=== PATIENT | male | born 1970 | race African-American/Black ===

== ENCOUNTER 2020-01-13 22:14 | Observation (INO) ==
[2020-01-13] MEDS ORDERED: IOPAMIDOL 100 ML BOTTLE IV ONE (22:15)
[2020-01-13 22:42] LABS: POC INR 1.1 (0.9-1.2); POC Pro Time 13.5 sec (11.9-14.5)
[2020-01-13 22:43] LABS: POC Blood Urea Nitrogen 16 mg/dl (6-20); POC CO2 25 mmol/L (22-30); POC Calcium, Ionized 1.23 mmol/L (1.16-1.32); POC Chloride 100 mmol/L (96-108); POC Creatinine 0.9 mg/dl (0.7-1.2); POC Glucose, Random 156 mg/dL (70-105); POC Potassium 3.9 mmol/L (3.3-5.1); POC Sodium 139 mmol/L (133-145)
--- NOTE | 2020-01-13 23:08 | Emergency Department Note ---
Neuro HPI General Chief Complaint: Stroke Symptoms Stated Complaint: speech difficulty Time Seen by Provider: 01/13/20 23:02 Source: patient and family Mode of arrival: wheelchair Limitations: physical limitation (Somewhat limited due to morbid obesity primarily abdominally. This is some decrease in mobility and agility getting, etc.) History of Present Illness HPI Narrative: Narrative: This 49-year-old male comes accompanied by his walking into the emergency room stating that his blood pressure is been quite high at 210/170 and that he cannot elucidate or articulate words. He means that he cannot seem to find words. He indicates the onset of the symptoms were this evening. She remembers having normal conversation at 6:30 PM but 6:40 he was having troubles forming and finding words or figuring out what to say. He apparently had similar episode in 2013 approximately 6 years ago and was labeled as a TIA with difficulties with speech then. He currently denies any paresthesias or weakn ess. There is been a little bit of dizziness. reports that he did sleep this morning even close till noon and this is unusual for him. He commonly is drowsy or groggy but he does not usually sleep this much. Patient reports he has had an increase in swelling the past 3 weeks and has been very gradual. He is on medications for blood pressure and for congestive heart failure. Lisinopril 20 mg twice a day and furosemide 40 mg once daily with these doses having been increased recently at least the water pill. On Anticoagulants: No Related Data Home Medications Medication Instructions Recorded Confirmed furosemide [Lasix] 40 mg PO DAILY 01/14/20 01/14/20 lisinopril 20 mg PO DAILY 01/14/20 01/14/20 Allergies Allergy/AdvReac Type Severity Reaction Status Date / Time No Known Drug Allergies Allergy Verified 11/11/19 09:14 Review of Systems ROS ROS Narrative: Narrative: Denies fevers, chills, sweats Denies blurry vision or double vision Denies chest pain Short of breath chronically but has been a little worse today since she got home from work at 3 PM. Denies any nausea or vomiting or abdominal vision or hematochezia. Some lightheaded dizziness. Some prediabetes in the past. Has had mild anemia at a previous visit to this emergency room or other. [facility] Narrative Patient History Narrative: Narrative: Medical/Surgical/Family History All Active Problems (Updated 01/14/20 @ 03:00 by Booker Perez DO) TIA (transient ischemic attack) (Acute) Hypertension, essential (Chronic) JOANNE (obstructive sleep apnea) (Chronic) Morbid obesity (Chronic) Congestive heart failure (Acute) Medical History (Updated 01/14/20 @ 03:00 by Booker Perez DO) Chest pain (Inactive) Community acquired pneumonia (Inactive) Gout attack (Inactive) History of TIA (transient ischemic attack) (Resolved) 2013 per pt and Hypertension, essential (Chronic) Morbid obesity (Chronic) JOANNE (obstructive sleep apnea) (Chronic) Family History (Updated 01/13/20 @ 23:16 by Booker Perez DO) DVT (deep venous thrombosis) Father CVA (cerebral vascular accident) Father Social History Smoking Status: Never smoker Exam Narrative Narrative: Narrative: General Limitations: physical limitation (Somewhat limited due to morbid obesity primarily abdominally. This is some decrease in mobility and agility getting, etc.) General appearance: alert, in no apparent distress and nontoxic Head Head: atraumatic and normocephalic Eye Eye: Present normal appearance, PERRL and EOMI ENT ENT: Present normal oropharynx and mucous membranes moist Neck Neck: Present trachea midline; Absent lymphadenopathy and thyromegaly Chest Chest: Present symmetric chest wall rise Respiratory Respiratory: Present normal lung sounds bilaterally; Absent respiratory distress, rales/crackles, wheezes, stridor, accessory muscle use and prolonged expiratory phase Cardiovascular Cardiovascular: Present regular rate and normal rhythm; Absent systolic murmur and diastolic murmur Adbominal Abdominal: Present soft and other (Thickening and "orange peel" type of changes in the lower one third of the abdominal wall. There is trace pinkness to this area as well.); Absent distention, tenderness, guarding, rebound, rigidity, organomegaly and mass Extremities Extremities: Present normal capillary refill, pedal edema (2/4 bilateral) and pretibial edema (1-2/4 bilateral); Absent calf tenderness and cyanosis Back Back: Neurological Neurological: Present alert and oriented X3 Expanded Neurological Patient oriented to: Present person, place and time Speech: Present expressive aphasia (Occasionally has troubles finding words and/or expressing himself answering correctly. Articulation overall is correct and good.) CRANIAL NERVES: EOM function (II, III, IV, ): Normal Psychiatric Psychiatric: Present normal affect and pleasant; Absent depressed, agitated, anxious and poor eye contact Skin Skin: Present warm and dry; Absent cyanosis and pallor Course Vital Signs Vital signs: Vital Signs Temperature 97.5 F 01/13/20 22:14 Pulse Rate 114 H 01/13/20 22:14 Respiratory Rate 12 01/13/20 22:14 Blood Pressure 192/131 01/13/20 22:14 Pulse Oximetry (%) 95 01/13/20 22:14 Temperature 97.5 F 01/13/20 22:14 Pulse Rate 91 H 01/14/20 02:41 Respiratory Rate 29 H 01/14/20 02:41 Blood Pressure 178/106 01/14/20 02:32 Pulse Oximetry (%) 96 01/14/20 02:41 MDM MDM Narrative Medical decision making narrative: Narrative: 10:13 PM - interviewed and examined. Word finding/expression difficulties with a history of speech type deficit TIA 6 years ago. Risk factors include male, 49-year-old, history of CHF, morbid obesity, prediabetes, sleep apnea etc. We will do multiple labs and imaging. This will include a code stroke. 10:26 PM - ECG demonstrated sinus tachycardia with late transition. 10:49 PM INR is 1.1; CT scan report officially negative. Blood pressures have now come down to 170/110. He still has some difficulties finding some words per nursing staff. NIH scale of 1 for the speech only. 10:50 AM - blood sugar reported to me as 210. 2:09 AM - I spoke with Dr. Auguste, stroke neurologist, who agrees with work-up and admission with the ABCD 2 score of 5 and his risk factors to finish the stroke work-up with MRI, telemetry, echo. Call out to hospitalist. 2:30 AM - I spoke with Dr. Wall, hospitalist who is willing to accept this patient. Patient may not be able to get MRI done here due to his morbid obesity. Monitoring, echocardiogram, and therapy with aspirin (ordered) can be done and transition orders placed. Patient is also a new diabetic. Lab Data Result diagrams: 01/13/20 22:40 01/13/20 22:40 Labs: Lab Results 01/13/20 01/13/20 01/13/20 Range/Units 22:40 22:40 22:40 WBC 9.3 (4.50-11.00) K/mcL RBC 4.90 (4.63-6.08) M/mcL Hgb 12.9 L (13.7-17.5) g/dL Hct 40.3 (40.1-51.0) % POC Hct 42.0 (41.0-55.0) % MCV 82.2 (80.0-100.0) fL MCH 26.3 (26.0-34.0) pg MCHC 32.0 (31.0-36.0) g/dL RDW 15.9 H (11.5-14.5) % Plt Count 290 (140-440) K/mcL MPV 10.7 H (7.4-10.4) fL Gran % 69.1 (38.0-78.0) % Lymph % (Auto) 18.0 (15.5-49.0) % [place] % (Auto) 8.0 (1.0-12.0) % Eos % (Auto) 3.9 (0.0-7.0) % Baso % (Auto) 1.0 (0.0-2.0) % Gran # 6.45 (1.80-8.00) K/mcL Lymph # (Auto) 1.68 (1.50-4.80) K/mcL [place] # (Auto) 0.75 (0.10-0.90) K/mcL Eos # (Auto) 0.36 (0.00-0.70) K/mcL Baso # (Auto) 0.09 (0.00-0.30) K/mcL POC PT 13.5 (11.9-14.5) sec POC INR 1.1 (0.9-1.2) APTT 32 (20-37) sec POC Sodium 139 (133-145) mmol/L Sodium 136 (133-145) mmol/L POC Potassium 3.9 (3.3-5.1) mmol/L Potassium 3.9 (3.3-5.1) mmol/L POC Chloride 100 (96-108) mmol/L Chloride 97 (96-108) mmol/L Carbon Dioxide 23 (22-30) mmol/L POC Total CO2 25 (22-30) mmol/L Anion Gap 16.0 (8-16) POC BUN 16 (6-20) mg/dl BUN 16 (6-20) mg/dl Creatinine 1.0 (0.7-1.2) mg/dl POC Creatinine 0.9 (0.7-1.2) mg/dl GFR Calculation 87 Glucose 156 H (70-105) mg/dL POC Glucose 156 H (70-105) mg/dL Calcium 9.7 (8.6-10.4) mg/dl POC WB Ioniz Calcium 1.23 (1.16-1.32) mmol/L Total Bilirubin 0.4 (0.0-1.0) mg/dL AST 17 (0-37) U/l ALT 21 (0-40) U/l Alkaline Phosphatase 85 (39-117) U/L Troponin T (0-0.03) ng/ml Total Protein 7.7 (5.9-8.4) gm/dL Albumin 4.0 (3.2-5.2) gm/dL Globulin 3.7 (2.2-3.7) gm/dL Albumin/Globulin Ratio 1.1 (1.0-2.3) Urine Color Urine Appearance Urine pH (5.0-9.0) Ur Specific [place] (1.000-1.035) Urine Protein (NEG) mg/dL Urine Glucose (UA) (NEG) mg/dL Urine Ketones (NEG) mg/dL Urine Occult Blood (<0.03) mg/dL Urine Nitrate (NEG) Urine Bilirubin (NEG) mg/dL Urine Urobilinogen (NEG) mg/dL Ur Leukocyte Esterase (NEG) /uL Urine RBC (0-1) /hpf Urine WBC (0-4) /hpf Ur Squamous Epith Cells (0-4) /hpf Urine Bacteria (0) /hpf Urine Mucus (0) /hpf Ur Culture Indicated? 01/13/20 01/13/20 Range/Units 22:40 23:20 WBC (4.50-11.00) K/mcL RBC (4.63-6.08) M/mcL Hgb (13.7-17.5) g/dL Hct (40.1-51.0) % POC Hct (41.0-55.0) % MCV (80.0-100.0) fL MCH (26.0-34.0) pg MCHC (31.0-36.0) g/dL RDW (11.5-14.5) % Plt Count (140-440) K/mcL MPV (7.4-10.4) fL Gran % (38.0-78.0) % Lymph % (Auto) (15.5-49.0) % [place] % (Auto) (1.0-12.0) % Eos % (Auto) (0.0-7.0) % Baso % (Auto) (0.0-2.0) % Gran # (1.80-8.00) K/mcL Lymph # (Auto) (1.50-4.80) K/mcL [place] # (Auto) (0.10-0.90) K/mcL Eos # (Auto) (0.00-0.70) K/mcL Baso # (Auto) (0.00-0.30) K/mcL POC PT (11.9-14.5) sec POC INR (0.9-1.2) APTT (20-37) sec POC Sodium (133-145) mmol/L Sodium (133-145) mmol/L POC Potassium (3.3-5.1) mmol/L Potassium (3.3-5.1) mmol/L POC Chloride (96-108) mmol/L Chloride (96-108) mmol/L Carbon Dioxide (22-30) mmol/L POC Total CO2 (22-30) mmol/L Anion Gap (8-16) POC BUN (6-20) mg/dl BUN (6-20) mg/dl Creatinine (0.7-1.2) mg/dl POC Creatinine (0.7-1.2) mg/dl GFR Calculation Glucose (70-105) mg/dL POC Glucose (70-105) mg/dL Calcium (8.6-10.4) mg/dl POC WB Ioniz Calcium (1.16-1.32) mmol/L Total Bilirubin (0.0-1.0) mg/dL AST (0-37) U/l ALT (0-40) U/l Alkaline Phosphatase (39-117) U/L Troponin T < 0.01 (0-0.03) ng/ml Total Protein (5.9-8.4) gm/dL Albumin (3.2-5.2) gm/dL Globulin (2.2-3.7) gm/dL Albumin/Globulin Ratio (1.0-2.3) Urine Color Straw Urine Appearance Clear Urine pH 7.0 (5.0-9.0) Ur Specific [place] 1.009 (1.000-1.035) Urine Protein 30 A (NEG) mg/dL Urine Glucose (UA) Negative (NEG) mg/dL Urine Ketones Neg (NEG) mg/dL Urine Occult Blood Neg (<0.03) mg/dL Urine Nitrate Neg (NEG) Urine Bilirubin Neg (NEG) mg/dL Urine Urobilinogen Neg (NEG) mg/dL Ur Leukocyte Esterase Neg (NEG) /uL Urine RBC 0 (0-1) /hpf Urine WBC 1 (0-4) /hpf Ur Squamous Epith Cells 0 (0-4) /hpf Urine Bacteria 0 (0) /hpf Urine Mucus Few (0) /hpf Ur Culture Indicated? No Discharge Plan Patient/Caregiver Discharge Instructions Pt seen by [facility]/PA only: No Clinical Impression: TIA (transient ischemic attack) Patient Disposition: Xfer As Outpt/Obs ([facility]) Follow up with: No,PCP [Primary Care Provider] - Prescriptions: No Action furosemide [Lasix] 40 mg tablet 40 mg PO DAILY RF: 0 lisinopril 20 mg tablet 20 mg PO DAILY RF: 0
[2020-01-13 23:47] LABS: Basophils # (Auto) 0.09 K/mcL (0.00-0.30); Eosinophils # (Auto) 0.36 K/mcL (0.00-0.70); Eosinophils % (Auto) 3.9 % (0.0-7.0); Granulocytes % (Auto) 69.1 % (38.0-78.0); Hematocrit 40.3 % (40.1-51.0); Hemoglobin 12.9 g/dL (13.7-17.5); Lymphocytes # (Auto) 1.68 K/mcL (1.50-4.80); Mean Cell Volume 82.2 fL (80.0-100.0); Mean Platelet Volume 10.7 fL (7.4-10.4); Monocytes # (Auto) 0.75 K/mcL (0.10-0.90); Platelet Count 290 K/mcL (140-440); Red Cell Distribution Width 15.9 % (11.5-14.5); WBC 9.3 K/mcL (4.50-11.00)
[2020-01-14] MEDS ORDERED: FUROSEMIDE 40 MG/4 ML VIAL IV ONE (00:03)
[2020-01-14 00:07] LABS: ALT/SGPT 21 U/l (0-40); AST/SGOT 17 U/l (0-37); Albumin/Globulin Ratio 1.1 (1.0-2.3); Alkaline Phosphatase 85 U/L (39-117); Bilirubin,Total 0.4 mg/dL (0.0-1.0); Blood Urea Nitrogen 16 mg/dl (6-20); Calcium 9.7 mg/dl (8.6-10.4); Carbon Dioxide 23 mmol/L (22-30); Chloride 97 mmol/L (96-108); Globulin 3.7 gm/dL (2.2-3.7); Glomerular Filtration Rate 87; Glucose 156 mg/dL (70-105)
[2020-01-14 00:21] LABS: Appearance,Urine CLEAR; Bacteria,Urine 0 /hpf (0); Bilirubin,Urine NEG (NEG); Color,Urine STRAW; Culture Indicated,Urine NO; Glucose,Urine (UA) NEGATIVE (NEG); Ketones,Urine NEG (NEG); Leukocyte Esterase,Urine NEG /uL (NEG); Mucus,Urine FEW /hpf (0); Nitrate,Urine NEG (NEG); Protein,Urine 30 mg/dL (NEG); Specific Gravity,Urine 1.009 (1.000-1.035); Urine Blood NEG mg/dL (<0.03); Urine RBC 0 /hpf (0-1); Urine Squamous Epithelial Cell 0 /hpf (0-4); Urine WBC 1 /hpf (0-4); Urobilinogen,Urine NEG (NEG)
--- NOTE | 2020-01-14 06:05 | Cat Scan Report ---
INDICATION: Neuro Deficit/acute stroke COMPARISON: Previous examination dated 10/20/2019 TECHNIQUE: Axial noncontrast-enhanced images through the brain. Sagittally and coronally reformatted images. FINDINGS: The examination was initially interpreted by [facility] Cerebral hemispheres:No acute intra-axial hemorrhage. No focal intra-axial attenuation abnormality or localized mass effect. No midline shift. Lateral and third ventricles are enlarged. This is unchanged since 10/20/2019. Normal pressure hydrocephalus is not excluded in the appropriate clinical circumstances. Deep substance loss is possible. Brainstem and cerebellum:No intra-axial abnormality Extra-axial:No acute hemorrhage. No subdural or epidural hematoma. No subarachnoid hemorrhage. Basilar cisterns are normal Calvarial:No calvarial fracture. No lytic lesion Temporal bones are negative. No destructive lesions Soft tissue, orbits, sinuses:Orbits and visualized facial soft tissues are grossly normal. IMPRESSION: 1. Prominent lateral and third ventricles. Atrophy or normal pressure hydrocephalus or possible 2. No acute abnormality. No interval change since 10/22/2019 The exam was performed using radiation dose optimization techniques including, but not limited to, automated exposure control, adjustment of the mA and/or kV according to patient size and use of iterative reconstruction technique. Interpreted and Authenticated by: Hector Thakkar 01/14/20
--- NOTE | 2020-01-14 06:38 | Cat Scan Report ---
INDICATION: aphasia COMPARISON: Noncontrast enhanced brain CT scan dated 01/13/2020 TECHNIQUE: Axial images were obtained through the upper chest, neck, and head during arterial phase. MIP and CPR reformatted images. 140 ml Isovue 370 injected intravenously. FINDINGS: Examination was initially interpreted by [facility] Markedly suboptimal evaluation due to significant obesity. AORTIC ARCH: Aortic arch is negative. Origins of the left subclavian artery, left vertebral artery, left common carotid artery, innominate artery, right common carotid artery, right subclavian artery, right vertebral artery are negative. No origin stenosis. CAROTID ARTERIES:Right: Right common carotid artery is negative. No stenosis or occlusion. No significant calcified or noncalcified plaque at the origin of the right internal carotid artery. No significant stenosis or evidence for ulceration. Right internal carotid artery is otherwise negative. No stenosis or occlusion. No fibromuscular dysplasia or dissection. Left: Left common carotid artery is negative. No stenosis or occlusion No significant calcified or noncalcified plaque at the origin of left internal carotid artery. No significant stenosis. No evidence for ulceration. Left internal carotid artery is otherwise negative. There is no stenosis or occlusion. No dissection or evidence for fibromuscular dysplasia VERTEBRAL ARTERIES:Vertebral arteries are patent without stenosis or occlusion [place]:[Calcified plaque in the cavernous segments of both internal carotid arteries and supraclinoid segment of the left internal carotid artery. No significant stenosis or occlusion. M1 segments of the middle cerebral arteries and A1 segments of the anterior cerebral arteries are negative. Intracranial vertebral arteries and basilar artery are negative. Posterior cerebral arteries and superior cerebellar arteries are negative]. There is a surgical origin of the right posterior cerebral artery. INTRACRANIAL CIRCULATION:No intracranial branch occlusion. No arteriovenous malformation or aneurysm No dural sinus occlusion UPPER CHEST:Lungs are poorly visualized due to patient motion and severe obesity NECK:No solid or cystic soft tissue mass. No pathologic lymphadenopathy. BRAIN:No acute intracranial hemorrhage. No focal attenuation abnormalities or pathologic contrast enhancement. IMPRESSION: 1. Calcified plaque in the cavernous segments of the internal carotid arteries and supraclinoid segment of the left internal carotid artery 2. No significant plaque in the proximal internal carotid arteries 3. No intracranial branch occlusion or detectable stenosis The exam was performed using radiation dose optimization techniques including, but not limited to, automated exposure control, adjustment of the mA and/or kV according to patient size and use of iterative reconstruction technique. Interpreted and Authenticated by: Hector Thakkar 01/14/20
[2020-01-14] MEDS: ASPIRIN 325 MG ENTERIC COATED TABLET PO SCH (08:40)
--- NOTE | 2020-01-14 14:21 | Internal Med History&Physical ---
HPI History of Present Illness Patient information: Note initiated : 01/14/20 at 2:09 pm Service Date, if different from initiated Date: [] Patient: Magan Gayle a 49 y/o M admitted on 01/14/20 for speech difficulty. Chief Complaint: [difficulty articulating words] History of present illness: Mr. Gayle is a 49 year old M with morbid obesity, poorly controlled hypertension states he usually takes an asa 81mg daily but missed 3 days. Found that he could think of words but couldnt voice then. including meds and history. also noticed. He was seen in EMD and CTA head negative for stroke or occlusion. He does not fit in MRI machine here. Pt admits BP has been a problem and poorly controlled. Pt states he is a vegetarian but admits to eating lots of grains and starches carbohydrates but not sugar. has not lost much weight. 375 with diuresis 412 with fluid overload per his recollection. states his father of obesity and stroke age 50. Constitutional Constitutional: Present as per HPI and increased appetite; Absent weight gain and weight loss Cardiovascular Cardiovascular: Present leg edema; Absent chest pain at rest and chest pain with activity Respiratory Respiratory: Present dyspnea on exertion; Absent cough and chest congestion Musculoskeletal Musculoskeletal: Absent muscle weakness and myalgias Neurological Neurological: Present abnormal speech; Absent confusion, headache(s) and memory loss Psychiatric Psychiatric: Absent hopelessness Hematologic/Lymphatic Hematologic/Lymphatic: Absent easy bleeding and easy bruising PFSH PFSH All Active Problems (Updated 01/14/20 @ 14:21 by Zack Wall MD) TIA (transient ischemic attack) (Acute) Hypertension, essential (Chronic) JOANNE (obstructive sleep apnea) (Chronic) Morbid obesity (Chronic) Congestive heart failure (Acute) Medical History (Updated 01/14/20 @ 14:21 by Zack Wall MD) Chest pain (Inactive) Community acquired pneumonia (Inactive) Gout attack (Inactive) History of TIA (transient ischemic attack) (Resolved) 2013 per pt and Hypertension, essential (Chronic) diuretics to include furosemide and spironolactone cont lisinopril Morbid obesity (Chronic) pt counseled regarding need for weight loss. Decrease fried foods and carbohydrates. 1600 calorie wt loss diet. bs elevated here check A1C JOANNE (obstructive sleep apnea) (Chronic) start CPAP Here. Family History (Updated 01/13/20 @ 23:16 by Booker Perez DO) Father CVA (cerebral vascular accident) DVT (deep venous thrombosis) Social History (Updated 01/14/20 @ 14:16 by Zack Wall MD) household members: spouse marital status: occupational status: previously employed occupation: managing real estate rentals smoking status: Never smoker alcohol intake frequency: does not drink substance use type: does not use additional history: wants full code MEDS/ALLERGIES Home Medications and Allergies Home Medications Medication Instructions Recorded Confirmed Type furosemide [Lasix] 40 mg PO DAILY 01/14/20 01/14/20 History lisinopril 20 mg PO DAILY 01/14/20 01/14/20 History Allergies Allergy/AdvReac Type Severity Reaction Status Date / Time No Known Drug Allergies Allergy Verified 11/11/19 09:14 EXAM Constitutional Vitals: Temp Pulse Resp BP Pulse Ox 97.6 F 93 H 14 185/147 95 01/14/20 12:04 01/14/20 09:00 01/14/20 12:04 01/14/20 12:04 01/14/20 09:00 Exam: GEN WDWN WM NAD CV RRR no murmur or gallops REsp no coughing wheezing SOB GI no N/V/D/C/M/H no dysuria or hematuria neuro speech clear and face symmetric. no pronator drift. hand digital technician normal PERRLA EOMI SKin warm and dry DATA Data Completed and Pending Labs on day of discharge: Labs from last 24 hours 01/13/20 01/13/20 01/13/20 23:20 22:40 22:40 WBC RBC Hgb Hct POC Hct 42.0 MCV MCH MCHC RDW Plt Count MPV Gran % Lymph % (Auto) [place] % (Auto) Eos % (Auto) Baso % (Auto) Gran # Lymph # (Auto) [place] # (Auto) Eos # (Auto) Baso # (Auto) POC PT POC INR APTT POC Sodium 139 Sodium 136 POC Potassium 3.9 Potassium 3.9 POC Chloride 100 Chloride 97 Carbon Dioxide 23 POC Total CO2 25 Anion Gap 16.0 POC BUN 16 BUN 16 Creatinine 1.0 POC Creatinine 0.9 GFR Calculation 87 Glucose 156 H POC Glucose 156 H Calcium 9.7 POC WB Ioniz Calcium 1.23 Total Bilirubin 0.4 AST 17 ALT 21 Alkaline Phosphatase 85 Troponin T < 0.01 Total Protein 7.7 Albumin 4.0 Globulin 3.7 Albumin/Globulin Ratio 1.1 Urine Color Straw Urine Appearance Clear Urine pH 7.0 Ur Specific [place] 1.009 Urine Protein 30 A Urine Glucose (UA) Negative Urine Ketones Neg Urine Occult Blood Neg Urine Nitrate Neg Urine Bilirubin Neg Urine Urobilinogen Neg Ur Leukocyte Esterase Neg Urine RBC 0 Urine WBC 1 Ur Squamous Epith Cells 0 Urine Bacteria 0 Urine Mucus Few Ur Culture Indicated? No 01/13/20 01/13/20 22:40 22:40 WBC 9.3 RBC 4.90 Hgb 12.9 L Hct 40.3 POC Hct MCV 82.2 MCH 26.3 MCHC 32.0 RDW 15.9 H Plt Count 290 MPV 10.7 H Gran % 69.1 Lymph % (Auto) 18.0 [place] % (Auto) 8.0 Eos % (Auto) 3.9 Baso % (Auto) 1.0 Gran # 6.45 Lymph # (Auto) 1.68 [place] # (Auto) 0.75 Eos # (Auto) 0.36 Baso # (Auto) 0.09 POC PT 13.5 POC INR 1.1 APTT 32 POC Sodium Sodium POC Potassium Potassium POC Chloride Chloride Carbon Dioxide POC Total CO2 Anion Gap POC BUN BUN Creatinine POC Creatinine GFR Calculation Glucose POC Glucose Calcium POC WB Ioniz Calcium Total Bilirubin AST ALT Alkaline Phosphatase Troponin T Total Protein Albumin Globulin Albumin/Globulin Ratio Urine Color Urine Appearance Urine pH Ur Specific [place] Urine Protein Urine Glucose (UA) Urine Ketones Urine Occult Blood Urine Nitrate Urine Bilirubin Urine Urobilinogen Ur Leukocyte Esterase Urine RBC Urine WBC Ur Squamous Epith Cells Urine Bacteria Urine Mucus Ur Culture Indicated? A/P Assessment and plan (1) TIA (transient ischemic attack): Status: Acute Comment: start asa daily (2) History of TIA (transient ischemic attack): Status: Resolved Comment: 2013 per pt and (3) JOANNE (obstructive sleep apnea): Status: Chronic Comment: start CPAP Here. (4) Hypertension, essential: Status: Chronic Comment: diuretics to include furosemide and spironolactone cont lisinopril (5) Morbid obesity: Status: Chronic Comment: pt counseled regarding need for weight loss. Decrease fried foods and carbohydrates. 1600 calorie wt loss diet. bs elevated here check A1C (6) Congestive heart failure: Status: Acute Comment: as above. salt restricted diet. Qualifiers: Heart failure chronicity: acute on chronic Heart failure type: unspecified Qualified Code(s): I50.9 - Heart failure, unspecified Time Spent With Patient Time: Total time spent is greater than 50% in coordination of care (as documented) at patient's floor/unit and/or counseling patient: 55 mins QUALITY Stroke Onset of Symptoms Date: 01/13/20 Onset of Symptoms Time: 18:30 VTE Deep Vein Thrombosis/Pulmonary Embolism Present on Admission: No
[2020-01-14] MEDS ORDERED: ONDANSETRON 4 MG/2 ML VIAL IV PRN (14:25)
[2020-01-14] MEDS: SPIRONOLACTONE 25 MG TABLET PO SCH (15:09)
[2020-01-14] MEDS: LISINOPRIL 20 MG TABLET PO SCH ×2 (15:09→21:03)
[2020-01-14] MEDS ORDERED: ACETAMINOPHEN 325 MG TABLET PO PRN (15:15)
[2020-01-14 15:32] LABS: Hemoglobin A1C 8.3 % HGB (4.0-6.0)
[2020-01-14] MEDS: INSULIN LISPRO 1 UNIT/0.01 ML UNIT SQ SCH ×2 (16:24→21:03)
[2020-01-14] MEDS: CARVEDILOL 6.25 MG TABLET PO SCH (18:49)
[2020-01-14] MEDS: DOCUSATE SODIUM 100 MG CAPSULE PO SCH (20:46)
[2020-01-14] MEDS ORDERED: SENNOSIDES 1 TABLET PO SCH (21:00)
[2020-01-14] MEDS: FLUTICASONE PROPIONATE SPRAY.NAS NS SCH (22:29)
[2020-01-14] MEDS: 0.9 % SODIUM CHLORIDE 10 ML SYRINGE IV SCH (22:29)
[2020-01-15] MEDS: 0.9 % SODIUM CHLORIDE 10 ML SYRINGE IV SCH ×2 (05:44→15:09)
[2020-01-15 06:37] LABS: Blood Urea Nitrogen 17 mg/dl (6-20); Carbon Dioxide 28 mmol/L (22-30); Chloride 99 mmol/L (96-108); Glomerular Filtration Rate 99; Glucose 135 mg/dL (70-105); Phosphorous 4.2 mg/dL (2.7-4.5)
[2020-01-15] MEDS: INSULIN LISPRO 1 UNIT/0.01 ML UNIT SQ SCH ×2 (07:38→11:54)
[2020-01-15] MEDS: LISINOPRIL 20 MG TABLET PO SCH (08:45)
[2020-01-15] MEDS: CARVEDILOL 6.25 MG TABLET PO SCH (08:45)
[2020-01-15] MEDS: ASPIRIN 325 MG ENTERIC COATED TABLET PO SCH (08:45)
[2020-01-15] MEDS: DOCUSATE SODIUM 100 MG CAPSULE PO SCH (08:45)
[2020-01-15] MEDS: FLUTICASONE PROPIONATE SPRAY.NAS NS SCH (08:45)
[2020-01-15] MEDS: SPIRONOLACTONE 25 MG TABLET PO SCH (08:45)
--- NOTE | 2020-01-15 12:12 | Discharge Summary ---
Discharge Provider Provider Patient information: Note initiated : 01/15/20 at 12:09 pm Service Date, if different from initiated Date: [] Patient: Magan Gayle 49 y/o M admitted on 01/14/20 for speech difficulty. Chief Complaint: diff with making words 49 yo morbidly obese WM 391 lbs with untreated sleep apnea and poorly controlled hypertension presented with diff articulating words but was able to think of words (couldnt say). This resolved early and he has had therapy evaluation, CT head negative and CTA head and neck negative. Tele neg and echo done. He has marked LV dysfunction with EF 25% and pulmonary pressure 50 The pt during this hospitalization very talkative and though pleasant when counseled, gave lots of friendly excuses why he cant wear cpap, lose weight, see doctor regulary etc in past. agrees to make changes. newly diagnosed with diabetes 8.3 A1C Date of admission: 01/14/20 03:10 Discharge date: 01/15/20 Primary care physician: PCP No Consults: 01/14/20 02:16 Consult to Physician [CONS] Stat Comment: Consulting Provider: Zack Wall Reason For Exam: Physician to Consult Discharge Meds Discharge Medications Home Medications furosemide [Lasix] 40 mg PO DAILY 01/14/20 [History Confirmed 01/14/20 Last Taken Unknown] Accu-Chek 1 each FS 1HRACBID #100 strip 01/15/20 [Rx Last Taken Unknown] acetaminophen [Tylenol] 650 mg PO Q4HP PRN #100 tab 01/15/20 [Rx Last Taken Unknown] aspirin 325 mg PO DAILY #100 tab 01/15/20 [Rx Last Taken Unknown] carvedilol 6.25 mg PO BIDCC #60 tab 01/15/20 [Rx Last Taken Unknown] fluticasone propionate 1 spray NS BID #1 ea 01/15/20 [Rx Last Taken Unknown] lisinopril 20 mg PO BID #60 tab 01/15/20 [Rx Last Taken Unknown] spironolactone 50 mg PO DAILY #30 tab 01/15/20 [Rx Last Taken Unknown] COURSE Hospital Course Hospital course: 49 yo WM with history of morbid obesity also has sleep apnea but only did well with nasal mask lost it and lost insurance did not further seek the replacement. Came in with word articulation verbal deficit and that rapidly resolved. Was found to have normal CT angiogram of brain and neck. Telemetry on heart also ok but noted to have marked low cardiac LV function at only 25% EF. The pt also has pulmonary hypertension attributable to sleep apnea. Blood pressure high and poorly treated. He has 2+ leg edema abd wall edema but clear lungs. Pt was adjusted on his meds down from 208/132 to 160/114. He is 177.58 kg. Pt is very articulate and it took a lot of convincing for him to understand that he has been in denial of his health and not making the effort to be healthy. He intends to make a change. Denies any illicit use in 20 years. in twenties has used cocaine and meth but none in 20 years. UDS negative. Pt needs to follow up with sleep specialist, Primary physician and potentially a network security architect if primary not able to manage the BP and CHF. Discharge diagnosis: TIA Secondary discharge diagnosis: chronic combined systolic and diastolic CHF Morbid Obesity Newly diagnosed diabete Poorly controlled hypertension Untreated sleep apnea Reason for admission: TIA Pertinent studies/significant findings: echo show systolic chf 30% and pulmonary hypertension RVSP 50 Complications: none Time Spent with Patient Time attestation: Total time spent providing and/or coordinating discharge services: 60 mins Time spent: Greater than 30 minutes Specific discharge activities: need to start exercise and follow up with diabetic teaching and a PCP need to lose 4lbs a week for 4 weeks then 2 lbs a week. EXAM Constitutional Vitals: Temp Pulse Resp BP Pulse Ox 97.2 F 87 17 163/106 95 01/15/20 08:00 01/15/20 08:07 01/15/20 08:07 01/15/20 08:00 01/15/20 08:07 Gen WDWN Morbidly obese WM in NAD CV RRR Lungs CTA ABd soft obese there is abd wall edema 1+ to 2 over 4 Calves 2+ to 3/4 edema mentation alert and oriented x 3 speech clear face symmetric, moves all ext symmetrically. Discharge Data Data Completed and Pending Labs on day of discharge: Labs from last 24 hours 01/15/20 01/13/20 05:00 22:40 Sodium 137 Potassium 4.0 Chloride 99 Carbon Dioxide 28 Anion Gap 10.0 BUN 17 Creatinine 0.9 GFR Calculation 99 Glucose 135 H Hemoglobin A1c 8.3 H Estim Average Glucose 192 Calcium 9.0 Phosphorus 4.2 Magnesium 2.1 Discharge Plan Patient/Caregiver Discharge Instructions Activity: increase activity as tolerated Diet: Consistent Carbohydrate Instructions: Transient Ischemic Attack (GEN), Heart Failure (DC), Sleep Apnea (GEN), Type 2 Diabetes in Adults: New Diagnosis (GEN), Chronic Hypertension (DC) Activity Restrictions/Additional Instructions: You are scheduled with Manuel Jonas at [address] [facility]. Your appointment is January 28 at 0800 please check in at 0745. He will be you new primary care provider. He will be able to see your records from your hospital stay. Prescriptions: New Accu-Chek 1 each FS 1HRACBID Qty: 100 RF: 0 acetaminophen [Tylenol] 325 mg Tablet 650 mg PO Q4HP PRN (Reason: Per Pain Protocol/Fever > 101) Qty: 100 RF: 0 carvedilol 6.25 mg Tablet 6.25 mg PO BIDCC Qty: 60 RF: 0 aspirin 325 mg Tablet,Delayed Release (Dr/Ec) 325 mg PO DAILY Qty: 100 RF: 0 fluticasone propionate 50 mcg/actuation [place],Suspension 1 spray NS BID Qty: 1 RF: 0 lisinopril 20 mg Tablet 20 mg PO BID Qty: 60 RF: 0 spironolactone 50 mg tablet 50 mg PO DAILY Qty: 30 RF: 0 Continued furosemide [Lasix] 40 mg tablet 40 mg PO DAILY RF: 0 Discontinued lisinopril 20 mg tablet 20 mg PO DAILY RF: 0 Follow Up Plan Follow up with: Manuel Jonas MD [Physician] - 01/29/20 8:00 am (new patient was in the hospital 01/13 for TIA) Patient Disposition: Home, Self-Care Plan of Treatment: take meds as prescribed weigh self daily to ensure losing some water weight initially and follow up with primary physician record blood sugars twice a day and take into your doctor after first week weigh weekly only and plan lose 4 lbs a week water weight and fat for 4 weeks thereafter lose 2lbs a week for 20 wks Prognosis: Fair Rehab Potential: Good I certify that the patient requires SNF services: No Overall status at discharge: patient is progressing back to baseline Discharge Orders: Discharge Order (Routine); Ordered 01/15/20 Ordered By: Zack SORIANO VTE Deep Vein Thrombosis/Pulmonary Embolism Present on Admission: No
[2020-01-15 14:48] LABS: Amphetamine Screen,Urine NONE DETECTED (NONDETECTED); Barbiturate Screen,Urine NONE DETECTED (NONDETECTED); Benzodiazepines Screen,Urine NONE DETECTED (NONDETECTED); Cannabinoid Screen,Urine NONE DETECTED (NONDETECTED); Cocaine Screen,Urine NONE DETECTED (NONDETECTED); Opiate Screen,Urine NONE DETECTED (NONDETECTED); Oxycodone, Urine Screen NONE DETECTED (NONDETECTED); Phencyclidine Screen,Urine NONE DETECTED (NONDETECTED)
== END 2020-01-15 14:55 | disposition home or self-care (01) ==
LOC: ED 22:14 → ICU 22:14
PROVIDERS: ADMIT Internal Medicine; ATTEND Internal Medicine